=== PATIENT | female | born 1935 | race Caucasian/White ===

== ENCOUNTER → 2017-03-29 | Outpatient (CLI) | payer OTHER ==
[~2017-03-29] MED LIST: ACCUNEB SO1.25 MG/1 INH; APAP650 PO; ATENOLOL 25MG T25 M1 PO; KEFLEX500 MG PO; LOPRESSOR 50 MG50 M1; MUCUS RELIEF D1 EAC1 PO; NABUMETONE 500500 M1 PO; NEXIUM40 MG PO; NORCO 5-325 TA1 EACH PO; PULMICORT0.25 MG/1; SERTRALINE HCL100 MG PO; TENORMIN25 MG PO; VITAMIN D2000 UNIT PO
== END ==
LOC: RAD 02:06
DX: Z12.31 Encounter for screening mammogram for malignant neoplasm of breast (principal)

== ENCOUNTER 2017-04-03 16:41 | Inpatient (IN) | payer OTHER ==
[~2017-04-03] VITALS: Ht 160 cm; Wt 74.8 kg
--- NOTE | ~2017-04-03 | O ---
[facility] [place] [address] OPERATIVE REPORT Name: JASPREET ALATORRE Room #: 536-P [facility] IN .R.#: [id number] Admission: 04/04/17 Attend Phys: Krzysztof Silva MD Discharge: 04/08/17 Date of : 37 Report #: [id number] THIS REPORT FOR: //name// CC: FAM unknown Krzysztof Silva [facility] DATE OF SERVICE: 04/05/2017 PREOPERATIVE DIAGNOSIS: Right Schatzker II tibial plateau fracture. POSTOPERATIVE DIAGNOSIS: Right Schatzker II tibial plateau fracture. PROCEDURE: ORIF, right tibial plateau fracture. SURGEON: Chaparro George MD. CATERING ATTENDANT: Edilia Pfeiffer PA-C. ANESTHESIA: LMA. IMPLANTS: Synthes 6-hole proximal tibial locking plate with 8 screws. TOURNIQUET TIME: 70 minutes. ESTIMATED BLOOD LOSS: 25 mL. COMPLICATIONS: None. SPECIMENS: None. CONDITION UPON LEAVING THE OPERATING ROOM: Stable. INDICATIONS FOR PROCEDURE: The patient is an 82-year-old female who fell and sustained a right Schatzker II displaced tibial plateau fracture and after discussion with her, she elected for ORIF. DESCRIPTION OF PROCEDURE: Risks, benefits, alternatives, complications were discussed in detail with the patient including but not limited to risk of anesthesia, risk of damage to nerves, arteries, blood vessels, risk for infection, bleeding, risk for malunion, nonunion and need for reoperation. Informed consent was obtained from the patient. The right knee was appropriately marked in the preoperative holding area. IV Ancef was given for preoperative antibiotics. She was brought to the operating room and general endotracheal anesthesia was induced without complication. She was transferred to the operating room table and tourniquet was placed on the right thigh. Right [address] [address] OPERATIVE REPORT Name: JASPREET ALATORRE Room #: 536-P [facility] IN ..#: [id number] Admission: 04/04/17 Attend Phys: Krzysztof Silva MD Discharge: 04/08/17 Date of : 37 Report #: [id number] lower extremity was prepped and draped in normal sterile fashion. Timeout was performed properly identifying the patient and procedure as well as the instrumentation and implants. All in the operating room were in agreement. Right lower extremity was exsanguinated, tourniquet was inflated. Tourniquet time was approximately 70 minutes. A curvilinear incision centered over Gerdy's tubercle was made with 10 blade through the skin. Dissection was taken down sharply through the fascia and deep flaps were developed anteriorly and posteriorly. Fresh 10 blade was then used to dissect the fascia of Gerdy's tubercle and taken proximally and distally sharply. A submeniscal horizontal incision was made on the lateral aspect of the knee and the hemarthrosis was evacuated. Dissection was taken down anteriorly and the fracture line was identified and ____ down with curette and irrigation. Pointer reduction tongs were used to reduce the fracture and a 6-hole proximal tibial locking plate was placed laterally. Provisional K wires were placed through the plate and one cortical screw was placed distally for plate reduction. One conical screw was placed proximally and then the remainder 6 screws that were placed were all locking. Fluoroscopic imaging was used throughout this case to verify adequate fracture reduction and placement of hardware. There was some posterior comminution that was left alone as this was too small to be rebuilt. The wound was thoroughly irrigated with normal saline. The lateral capsule and meniscus were repaired down through the K-wire holes in the plate. Fascia was closed with 0 Vicryl, skin was closed with 2-0 Vicryl, skin so, soft dressing of Adaptic, 4 x 4, Webril, Konrad wrap were applied. The patient tolerated this procedure well and went to the recovery room under the care of anesthesia postoperatively. <ELECTRONICALLY SIGNED> By: Chaparro George MD 04/11/17 [id number] Chaparro George MD /nt
--- NOTE | ~2017-04-03 | EKG ---
[address] [place] [address] ELECTROCARDIOGRAM REPORT Name: JASPREET ALATORRE Room #: 536-P [facility]#: [id number] Admission: 04/03/17 Attend Phys: Krzysztof Silva MD Discharge: Date of : 37 Report #: [id number] THIS REPORT FOR: //name// [facility] ED Test Date: 2017-04-03 Test Time: 18:54:55 Pat Name: JASPREET ALATORRE Department: Room: 53 Gender: F Felt Pad Cutter: Ora SUMMERS : 1935 Requested By: Julio César Alexandre Order Number: [id number] MD: William Hendircks Measurements Intervals [place] Rate: 88 P: 28 MO: 149 QRS: 6 QRSD: 100 T: 72 QT: 412 QTc: 499 Interpretive Statements Sinus rhythm Borderline prolonged QT interval Compared to ECG 12/17/2015 10:23:18 No significant change was found Electronically Signed On 04-04-2017 9:27:02 CDT by William Hendricks [email or web address] <ELECTRONICALLY SIGNED> By: William Hendricks MD, [facility] 04/04/17 09 53 53 William Hendricks MD, [facility] /EPI
--- NOTE | ~2017-04-03 | HC ---
[facility] [place] [address] CONSULTATION Name: JASPREET ALATORRE Room #: 536-P [facility] IN M.R.#: [id number] Admission: 04/04/17 Attend Phys: Krzysztof Silva MD Discharge: Date of : 37 Report #: [id number] THIS REPORT FOR: //name// CC: FAM unknown [facility] DATE OF SERVICE: 04/04/2017 REASON FOR CONSULTATION: Right tibial fracture. HISTORY OF PRESENT ILLNESS: The patient is an 82-year-old female with a history of MR, hypertension, asthma and depression who was standing on an ____ inch platform at [place] when she fell. She denies loss of consciousness. She was brought in the Emergency Department, diagnosed with a right proximal tib-fib fracture and placed in a knee immobilizer. She was unable to weight bear and was admitted for pain control and orthopedic evaluation. PAST MEDICAL HISTORY: Difficult to obtain from the patient due to her mental limitations. 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 MEDICATIONS: Reported include sertraline, nabumetone, esomeprazole, albuterol, cholecalciferol, acetaminophen, guaifenesin/dextromethorphan, budesonide and atenolol. SOCIAL HISTORY: She lives in an assisted living facility, ambulates with a cane. Alcohol use is occasional. Smoking is none. REVIEW OF SYSTEMS: MUSCULOSKELETAL: See HPI. NEUROLOGIC: Denies numbness or tingling. PAST SURGICAL HISTORY: The patient denied surgery; however, her medical record shows she had a trigger finger surgery in 2012 and some type of right thumb surgery in 2013. PHYSICAL EXAMINATION: GENERAL: The patient is awake and alert. She is alert and oriented x 3. VITAL SIGNS: Most recent vital signs show temperature of 36.7, heart rate 91, respiration rate 20, blood pressure ____ and pulse oximetry is 95% on room air. EXTREMITIES: Examination of her bilateral upper extremities, grossly she has no significant deformity. She moves her bilateral fingers, wrists, forearms, elbows and shoulders without pain. There is no tenderness to palpation throughout the entire bilateral upper extremities. Bilateral lower extremities [address] [address] CONSULTATION Name: JASPREET ALATORRE Room #: 536-P [facility] IN .R.#: [id number] Admission: 04/04/17 Attend Phys: Krzysztof Silva MD Discharge: Date of : 37 Report #: [id number] show multiple spider veins in both of her lower extremities. Bilaterally, she has 2+ dorsalis pedis pulse. Sensation is intact to light touch throughout. EHL, FHL, dorsiflexion and plantar flexion are intact. Her right knee is significantly swollen and she has tenderness at the tibial plateau. There is no tenderness to palpation to the bilateral ankles and left leg, knee, thigh; has no pain with bilateral hip range of motion. RADIOGRAPHS: AP, lateral and oblique of the right knee were evaluated by myself as well as report was evaluated, which shows a lateral tibial plateau fracture with displacement and a proximal fibula fracture. CT scan was interpreted by myself as well that shows the same finding as well as some comminution and possibly a medial split as well that is minimally to nondisplaced. LABORATORY DATA: Studies done on 04/04/2017 shows white blood cell count 8, hemoglobin 10.1, hematocrit 29.8, platelet count 206. Chemistry shows a low potassium at 3.3. IMPRESSION AND PLAN: Right lateral tibial plateau fracture in an 82-year-old female with displacement. At this point, she would have more optimal outcome with surgical fixation. I will discuss this with my partners and await medical clearance. She would be required to understand and comply with nonweightbearing status on that leg for a period. Questions were encouraged and answered to the best of my ability. If surgery is performed, it will most likely be performed on Tuesday. Thank you very much for allowing me to participate in the care of this patient. By: [id number] Dahiana Kim MD /dickson
[2017-04-03 16:42] VITALS: BP 214/81
[2017-04-03 19:17] LABS: URINE BILIRUBIN NEGATIVE (Negative); URINE BLOOD 1+ (Negative); URINE COLOR YELLOW; URINE GLUCOSE-RANDOM* NEGATIVE (Negative); URINE KETONES 1+ (Negative); URINE LEUKOCYTES-REFLEX NEGATIVE (Negative); URINE PROTEIN (DIPSTICK) NEGATIVE (Negative); URINE UROBILINOGEN 0.2 E.U./dl (0.2-1.0)
[2017-04-03 19:25] LABS: SQUAMOUS 0-3 Few /LPF (0-3)
[2017-04-03 19:29] LABS: CASTS None Seen /LPF (None Seen); CRYSTALS None Seen /LPF (None Seen); URINE RBC 3-10 Few /HPF (0-2); URINE WBC-REFLEX 0-5 Rare /HPF (0-5)
[2017-04-03 19:30] LABS: RENAL EPITHELIAL CELLS 0-3 Few /LPF (None Seen); TRANSITIONAL EPITHEL CELL 4-10 Moderate /LPF (None Seen)
[2017-04-03 19:33] VITALS: BP 178/87
[2017-04-03 19:33] LABS: ABSOLUTE NEUTROPHILS 9.4 thou/uL (1.4-8.2); BASOPHILS 0.3 % (0.0-2.0); EOSINOPHILS 0.5 % (0.0-3.0); HEMATOCRIT 33.8 % (37.0-47.0); HEMOGLOBIN 11.4 gm/dL (12.0-15.0); LYMPHOCYTES 10.3 % (24.0-44.0); MCH 30.6 pg (26.0-34.0); MCHC 33.7 g/dL (28.0-37.0); MCV 90.9 fL (80.0-100.0); PLATELET COUNT 258 thou/uL (150-400); POLYS 84.9 % (36.0-66.0); RBC 3.72 mil/uL (4.20-5.00); RDW 14.1 % (10.5-14.5); WBC 11.1 thou/uL (4.0-11.0)
[2017-04-03 19:36] LABS: MANUAL DIFF NO
[2017-04-03 19:39] LABS: CALCIUM 8.8 mg/dL (8.5-10.1); CREATININE 0.7 mg/dL (0.6-1.0); POTASSIUM 3.5 mmol/L (3.5-5.1)
[2017-04-03 19:43] LABS: ALBUMIN 3.8 g/dL (3.4-5.0); TOTAL BILIRUBIN 0.6 mg/dL (<0.1-1.0); TOTAL PROTEIN 7.8 g/dL (6.4-8.2)
[2017-04-03 23:56] VITALS: BP 177/77
[2017-04-04 04:10] LABS: HEMATOCRIT 28.9 % (37.0-47.0); HEMOGLOBIN 10.1 gm/dL (12.0-15.0); MCH 31.4 pg (26.0-34.0); MCHC 34.9 g/dL (28.0-37.0); RBC 3.21 mil/uL (4.20-5.00); RDW 13.9 % (10.5-14.5)
[2017-04-04 04:21] LABS: CALCIUM 8.5 mg/dL (8.5-10.1); CREATININE 0.6 mg/dL (0.6-1.0); POTASSIUM 3.3 mmol/L (3.5-5.1)
[2017-04-04 07:37] VITALS: BP 147/63
[2017-04-04 20:00] VITALS: BP 166/66
[2017-04-05] VITALS (10 sets, daily range): BP systolic 112–178; BP diastolic 55–74
[2017-04-05 05:23] LABS: HEMATOCRIT 29.8 % (37.0-47.0); HEMOGLOBIN 10.1 gm/dL (12.0-15.0); MCH 30.9 pg (26.0-34.0); MCHC 33.8 g/dL (28.0-37.0); MCV 91.3 fL (80.0-100.0); RBC 3.26 mil/uL (4.20-5.00); RDW 14.2 % (10.5-14.5); WBC 6.9 thou/uL (4.0-11.0)
[2017-04-05 05:28] LABS: CALCIUM 8.4 mg/dL (8.5-10.1); CREATININE 0.6 mg/dL (0.6-1.0); POTASSIUM 3.2 mmol/L (3.5-5.1)
[2017-04-06 04:00] VITALS: BP 144/58
[2017-04-06 06:27] LABS: HEMATOCRIT 25.9 % (37.0-47.0); HEMOGLOBIN 8.8 gm/dL (12.0-15.0)
[2017-04-06 08:03] VITALS: BP 144/59
[2017-04-06 15:16] VITALS: BP 106/46
[2017-04-06 19:16] VITALS: BP 104/45
[2017-04-07 04:04] VITALS: BP 167/64
[2017-04-07 07:43] VITALS: BP 161/72
[2017-04-07 09:43] LABS: CALCIUM 8.1 mg/dL (8.5-10.1); CREATININE 0.5 mg/dL (0.6-1.0); MAGNESIUM 1.6 mg/dL (1.8-2.4); POTASSIUM 3.6 mmol/L (3.5-5.1)
[2017-04-07 15:43] VITALS: BP 147/62
[2017-04-07 20:09] VITALS: BP 135/52
[2017-04-07 23:45] VITALS: BP 151/54
[2017-04-08 04:35] VITALS: BP 180/66
[2017-04-08 04:53] VITALS: BP 168/72
[2017-04-08 07:31] VITALS: BP 153/58
== END 2017-04-08 15:10 | DRG 494 ==
LOC: ER 16:41 → EROBS 18:44 → 5S 19:24
PROVIDERS: Hospitalist; Nurse Practitioner Acute Care; Orthopaedic Surgery; Physician Assistant
PROC: 2W3MX1Z Immobilization of Left Lower Extremity using Splint (ICD-10-PCS; 2017-04-04)
PROC: 0QSG04Z Reposition Right Tibia with Internal Fixation Device, Open Approach (ICD-10-PCS; principal; 2017-04-05)
DX: S82.141A Displaced bicondylar fracture of right tibia, initial encounter for closed fracture (principal); J45.909 Unspecified asthma, uncomplicated; S00.93XA Contusion of unspecified part of head, initial encounter; W18.39XA Other fall on same level, initial encounter; F32.9 Major depressive disorder, single episode, unspecified; K21.9 Gastro-esophageal reflux disease without esophagitis; H91.92 Unspecified hearing loss, left ear; H35.30 Unspecified macular degeneration; I10 Essential (primary) hypertension; D64.9 Anemia, unspecified; Y93.89 Activity, other specified; Y92.89 Other specified places as the place of occurrence of the external cause; Y99.8 Other external cause status
CPT/HCPCS: 10086; 50010; 50101; 50341; 50386; 51277; 51412; 55430; 56526; 56528; 56530; 56667; 57091; 62110; 62900; 70005

== ENCOUNTER → 2018-04-03 | Outpatient (CLI) | payer OTHER | LOC: RAD 01:20 | DX: Z12.31 Encounter for screening mammogram for malignant neoplasm of breast (principal) ==

== ENCOUNTER → 2019-05-11 | Outpatient (CLI) | payer OTHER | LOC: RAD 01:40 | DX: Z12.31 Encounter for screening mammogram for malignant neoplasm of breast (principal) ==